=== PATIENT | male | born 1980 | race Native Hawaiian/Other Pacific Islander ===

== ENCOUNTER 2023-09-28 14:25 | Inpatient (IN) | payer OTHER ==
[~2023-09-28] VITALS: Ht 160 cm; Wt 83.2 kg
[2023-09-28 15:09] LABS: HEMATOCRIT 45.2 % (42.0-52.0); HEMOGLOBIN 14.7 g/dl (13.5-18.0); MEAN CELL VOLUME 92 fl (80.0-100.0); MEAN CORPUSCULAR HEMOGLOBIN 30 pg (27-31); MEAN CORPUSCULAR HGB CONC 33 g/dl (33.0-37.0); MEAN PLATELET VOLUME 9.6 fl (7.4-10.4); PLATELET COUNT 361 K/mm3 (130-400); REDCELL DISTRIBUTION WIDTH-CV 12.3 % (11.5-14.5)
[2023-09-28] MEDS ORDERED: Ondansetron 4 MG/2 ML VIAL IV ONE (15:15)
[2023-09-28] MEDS ORDERED: LR 1,000 ML IV ONE (15:15)
[2023-09-28 15:26] LABS: ALBUMIN 2.7 g/dL (3.5-5.0); BILIRUBIN,TOTAL 1.3 mg/dL (0.2-1.2); C-REACTIVE PROTEIN 6.43 mg/dL (0.00-0.50); CALCIUM 9.4 mg/dL (8.4-10.2); POTASSIUM 3.9 mEq/L (3.5-4.5)
[2023-09-28] MEDS ORDERED: Morphine 4 MG/ML VIAL IV ONE (15:30)
[2023-09-28 15:57] LABS: LYMPHOCYTE 12 % (20.0-51.0); NEUTROPHILS 78 % (42.0-75.2)
[2023-09-28] MEDS ORDERED: LR 1,000 ML IV SCH (16:45)
[2023-09-28] MEDS ORDERED: Morphine 4 MG/ML VIAL IV PRN (16:45)
[2023-09-28] MEDS ORDERED: Ondansetron 4 MG/2 ML VIAL IV PRN (16:45)
[2023-09-28] MEDS ORDERED: Polyethylene Glycol 3350 17 GM PDS PO PRN (16:45)
[2023-09-28] MEDS ORDERED: Acetaminophen 325 MG TAB PO PRN (16:45)
[2023-09-28] MEDS ORDERED: Glucagon 1 MG VIAL IM PRN (17:00)
[2023-09-28] MEDS ORDERED: Dextrose 50% Water 25 GM/50 ML SYRINGE IV PRN (17:00)
[2023-09-28] MEDS ORDERED: Dextrose (Glucose) 15 GM (4 x 3.75 GM) Chewable TABLET PACK PO PRN (17:00)
[2023-09-28] MEDS ORDERED: Insulin Lispro (HumaLOG) SQ SCH (17:00)
[2023-09-28 17:52] VITALS: BP 113/78; PULSE 79; TEMP 98.2
[2023-09-28 18:22] VITALS: BP_SYST 113
--- NOTE | 2023-09-28 18:29 | NUR ---
1715 - Pt arrived to surgical unit in wheelchair transport via ED staff. Pt independently transferred self to bed. Pt intake and assessment performed at this time. R AC 20 g IV flushes with blood return. Blood cultures obtained at this time. IV abx administered post blood culture. Pt complaining of abd pain at this time. PRN IV morphine given for pain. Pt does not have any other concerns at this time.
[2023-09-28 20:00] VITALS: BP_SYST 115
[2023-09-28 20:34] VITALS: BP 115/74; PULSE 97; TEMP 99
[2023-09-29] VITALS (41 sets, daily range): BP systolic 91–125; BP diastolic 52–85; PULSE 60–92; TEMP 98.1–103
--- NOTE | 2023-09-29 01:23 | NUR ---
pt lying in bed, alert and oriented x4. denies chest pain and shortness of breath. tylenol given for elevated temp and reported pain. IV in RAC is patent, site is CDI with LR running at 125 ml/hr. x3 abd sites open to air, CDI. pt has no further needs, questions, or concerns at this time. ambulates with steady gait, call light within reach. will continue to monitor.
[2023-09-29 07:11] LABS: HEMATOCRIT 41.4 % (42.0-52.0); HEMOGLOBIN 13.7 g/dl (13.5-18.0); MEAN CELL VOLUME 90 fl (80.0-100.0); MEAN CORPUSCULAR HEMOGLOBIN 30 pg (27-31); MEAN CORPUSCULAR HGB CONC 33 g/dl (33.0-37.0); MEAN PLATELET VOLUME 9.7 fl (7.4-10.4); PLATELET COUNT 321 K/mm3 (130-400); RED BLOOD COUNT 4.61 M/mm3 (4.20-5.60); REDCELL DISTRIBUTION WIDTH-CV 12.3 % (11.5-14.5)
[2023-09-29 07:17] LABS: CALCIUM 8.8 mg/dL (8.4-10.2); CREATININE, serum 0.87 mg/dL (0.72-1.25)
--- NOTE | 2023-09-29 07:22 | NUR ---
0645 - Report received. Pt asleep, laying in bed comfortably. LR running. Pt NPO since midnight, scheduled for drain placement on this date. Independent in room. Call light within reach.
[2023-09-29 08:28] LABS: BAND 1 % (0-10); LYMPHOCYTE 13 % (20.0-51.0); NEUTROPHILS 78 % (42.0-75.2)
[2023-09-29 08:29] LABS: PLATELET ESTIMATE NORMAL (NORMAL)
[2023-09-29] MEDS ORDERED: Pantoprazole 40 MG in NS 10 ML IV SCH (09:00)
[2023-09-29] MEDS ORDERED: AMOXICILLIN/CLA1 TA1 PO (09:28)
[2023-09-29] MEDS ORDERED: JANUVIA25 MG PO (09:28)
[2023-09-29] MEDS ORDERED: COLACE 100100 MG/CAP PO (09:29)
[2023-09-29] MEDS ORDERED: NORCO 325 MG-51 TAB PO (09:30)
[2023-09-29] MEDS ORDERED: TYLENOL 325MG325 MG PO (09:31)
--- NOTE | 2023-09-29 10:20 | NUR ---
1015 - Consent for abscess drain obtained. No questions at this time. Report given to CT.
--- NOTE | 2023-09-29 10:40 | NUR ---
0913 - Pt awake, laying down in bed for morning assessment and med pass. Pt remains NPO since midnight. 20 g IV R AC patent, LR running at 125 ml/hr. Pt experiencing pain 06/13, stating this is tolerable, denying pain medication at this time. Pt states he is ready for his procedure, hoping to go home following procedure. No other concerns at this time. Pt independent in room. Call light within reach.
--- NOTE | 2023-09-29 10:53 | NUR ---
ISAEL met with patient to complete initial assessment for discharge planning. 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 He lives with his Duyen Guevara ([phone]). Patient uses [facility] for his medical care and pharmacy needs. Patient denies having a DPOA completed but did agree to doing one at this time. ISAEL and KANNAN Kunz witnessed signature on DPOA document naming Duyen as patient's DPOA. Patient plans to return home at discharge. Discharge plan: Home
--- NOTE | 2023-09-29 11:01 | NUR ---
1055 - Pt picked up by IR, taken to procedure.
[2023-09-29] MEDS ORDERED: fentaNYL 50 MCG/ML 2 ML VIAL IV SCH ×2 (11:37→14:55)
[2023-09-29] MEDS ORDERED: Midazolam 2 MG/2 ML VIAL IV SCH ×2 (11:37→14:55)
--- NOTE | 2023-09-29 12:45 | NUR ---
SPECIMEN COLLECTED AT 1127. 50ML OF RODRIGUEZ FLUID.
--- NOTE | 2023-09-29 12:47 | NUR ---
PAIN 10/10 DURING PROCEDURE--DR. HASSAN AWARE AND GAVE BVERBAL ORDERS--SEE MAR.
--- NOTE | 2023-09-29 14:45 | NUR ---
Pt to ct per bed. Pt on ct table in supine position. Monitors applied.
--- NOTE | 2023-09-29 14:55 | NUR ---
Dr Troncoso into room for replacement of drain that was previously placed. Pt having a lot of pain.
--- NOTE | 2023-09-29 15:15 | NUR ---
Drain placed by Dr Troncoso and draining purulent into accordian drain.
--- NOTE | 2023-09-29 15:30 | NUR ---
1220 - Pt arrived back to unit from drain placement. Pt pain 10/10, after receiving versed and fentanyl during procedure. Pt BP 91/52, waiting on BP to rise before giving PRN morphine. Pt understanding and willing to wait. IV abx administered at this time. Surgical site assessed, dressing clean, dry, intact. No drainage noted in drain, negative pressure accordian noted to be fully decompressed. Accordian compressed at this time. 1300 - IV abx finished running. Fluids re-initiated at this time. Pt pain still 10/10. Pt shaking, moaning, grimacing, and guarding at this time. Pt also stated that he was feeling very cold. Temp checked at this time, 98.1F. BP rechecked, 123/70. PRN morphine administered at this time. Accordian noted to be partially decompressed again. Accordian compressed again. 1330 - Pain reassessment following PRN administration of morpine showed no relief of pain, still 10/10 pain. Pt still showing physical symptoms of pain at this time, grimacing, shaking, chills, moaning, guarding. Accordian drain partially decompressed again at this time. Accordian compressed again. Dr Gaspar notified of unrelief of pain. Repeat CT scan ordered. Pt taken back to CT for scan. Pt placed back on NPO status. 1430 - Pt taken back to IR for redo drain placement. 1530 - Pt arrived back to unit following drain re-placement. Pt states he is now at 0/10 pain, "feeling much better." Pt is placed back on Carb Count diet, eating lunch up in chair. Fluids initiated again at this time, LR running at 125 ml/hr. Pt dressing clean, dry, intact with scant sanguinous drainage in drainage container. Pt independent in room. Call light within reach.
[2023-09-29] MEDS ORDERED: oxyCODONE 5 MG TAB PO PRN (20:30)
[2023-09-29] MEDS ORDERED: Acetaminophen 325 MG TAB PO ONE (20:30)
--- NOTE | 2023-09-29 20:30 | NUR ---
DR. SOLORIO NOTIFIED OF PTS FEVER OF 103 ORALLY. NEW ORDERS FOR ONE TIME DOSE OF TYLENOL, VANCO STARTED WELL OXYCODONE FOR PAIN. OTHER VITAL SIGNS STABLE. WILL MONITOR.
[2023-09-29] MEDS ORDERED: Vancomycin 1.75 GM,Special Dose/Pharmacy Prepared 1.75 GM in NS 500 ML IV ONE (20:45)
--- NOTE | 2023-09-29 21:32 | NUR ---
Vancomycin Initial Dosing Pharmacy Note Ordering provider: Vero Gaspar MD Indication/duration: SEPSIS / ABDOMINAL ABSCESS Relevant comorbidities: APPENDECTOMY 09/21/23 - PRESCRIBED AUGMENTIN 09/22/23 LABS: WBC: 19.2 CRCL 94 ML/MIN 83.2 KG Recommendation: [address] SOLORIO Loading dose: 1.75 grams Maintenance dose: 1.5 grams every 12 hours Trough goal: 15-20 ug/mL
[2023-09-30] VITALS (14 sets, daily range): BP systolic 99–136; BP diastolic 70–79; PULSE 74–95; TEMP 97.9–102.9
[2023-09-30] MEDS ORDERED: Ibuprofen 200 MG TAB PO ONE (02:15)
--- NOTE | 2023-09-30 02:15 | NUR ---
THE PATIENT IS STILL RUNNING HIGH FEVERS 102.[address] SOLORIO NOTIFIED AND A NEW ORDER WAS RECEIVED TO GIVE 200 MG OF PO IBUPROFEN NOW AND IF THE PTS TEMP DOES NOT COME DOWN WITHIN 2 HOURS IT IS OKAY TO GIVE ANOTHER 200 MG OF IBUPROFEN IF NEEDED. WILL MONITOR.
[2023-09-30 06:47] LABS: BASO # 0.1 K/mm3 (0.0-0.2); BASO % 0.3 % (0.0-2.0); GRAN # 19.7 K/mm3 (1.4-6.5); GRAN % 86.6 % (42.2-75.2); HEMATOCRIT 41.9 % (42.0-52.0); HEMOGLOBIN 13.8 g/dl (13.5-18.0); LYMPH # 1.4 K/mm3 (1.2-3.4); LYMPH % 6.2 % (20.0-51.0); MEAN CELL VOLUME 91 fl (80.0-100.0); MEAN CORPUSCULAR HEMOGLOBIN 30 pg (27-31); MEAN CORPUSCULAR HGB CONC 33 g/dl (33.0-37.0); MEAN PLATELET VOLUME 9.6 fl (7.4-10.4); MONO # 1.4 K/mm3 (0.1-0.6); MONO % 6.2 % (1.7-9.3); PLATELET COUNT 254 K/mm3 (130-400); RED BLOOD COUNT 4.62 M/mm3 (4.20-5.60); REDCELL DISTRIBUTION WIDTH-CV 12.1 % (11.5-14.5)
[2023-09-30 07:13] LABS: ALBUMIN 2.3 g/dL (3.5-5.0); BILIRUBIN,TOTAL 3.3 mg/dL (0.2-1.2); CALCIUM 8.8 mg/dL (8.4-10.2); CREATININE, serum 0.8 mg/dL (0.72-1.25); POTASSIUM 3.6 mEq/L (3.5-4.5); TOTAL PROTEIN 7.2 g/dl (6.2-8.1)
--- NOTE | 2023-09-30 07:20 | NUR ---
Pt laying in bed. Pt stating he wants to go home. Educated Pt on need for IV Abx due to infection. Pt insistent that he can do oral Abx at home. Attempted to explain difference between IV and PO Abx. Educated Pt on WBC counts and fever. Pt insistent on talking with provider. Compressed Accordian drain. No further needs. Call light in reach.
--- NOTE | 2023-09-30 07:46 | NUR ---
Attempted to call Dr Ioana Gaspar with Critical Lab result. Call was left to voicemail.
[2023-09-30] MEDS ORDERED: Vancomycin 1.5 GM,Special Dose/Pharmacy Prepared 1.5 GM in NS 250 ML IV SCH (09:00)
--- NOTE | 2023-09-30 09:30 | NUR ---
Pt laying in bed. A&Ox4. VSS. Temp trending down from last night. S1S2 Clear lungs on RA. ABd is round, firm, tender on palpation. Pt guards and tenses when anything touches ABD. Palpable pulses in all extremities with 5/5 strength. IV in R AC has LR at 125 cc/hr. Accordian drain in RLQ has gauze dressing, CDI, compressed with small amount of brown-red drainage in bag. Pt states he does not want anything for pain at this time as it only hurts when someone touches the drain site. Pt denies n/v, fever/chills, headache. No further needs. Call light in reach.
[2023-09-30] MEDS ORDERED: Ibuprofen 400 MG TAB PO PRN (12:00)
--- NOTE | 2023-09-30 12:02 | NUR ---
PCT reported Pt's temp was starting to go back up: 99.9. Called provider for Motrin PO order. Administered med and will monitor temp this PM. Pt reported he has not had a BM since 09/26 and feels like he has to go but cannot. Appetite has been good and feels full.
--- NOTE | 2023-09-30 13:04 | NUR ---
PCT notified this RN, Pt's temperature came back down after Motrin to 98.7.
[2023-10-01] VITALS (11 sets, daily range): BP systolic 101–136; BP diastolic 67–72; PULSE 69–92; TEMP 97.9–100
[2023-10-01 06:41] LABS: BASO % 0.2 % (0.0-2.0); EOS # 0.1 K/mm3 (0.0-0.7); EOS % 0.4 % (0.0-4.0); GRAN # 15.9 K/mm3 (1.4-6.5); GRAN % 83.3 % (42.2-75.2); HEMOGLOBIN 12.3 g/dl (13.5-18.0); LYMPH # 1.8 K/mm3 (1.2-3.4); LYMPH % 9.4 % (20.0-51.0); MEAN CELL VOLUME 88 fl (80.0-100.0); MEAN CORPUSCULAR HEMOGLOBIN 30 pg (27-31); MEAN CORPUSCULAR HGB CONC 34 g/dl (33.0-37.0); MEAN PLATELET VOLUME 9.7 fl (7.4-10.4); MONO # 1.2 K/mm3 (0.1-0.6); PLATELET COUNT 298 K/mm3 (130-400); RED BLOOD COUNT 4.13 M/mm3 (4.20-5.60); REDCELL DISTRIBUTION WIDTH-CV 12.2 % (11.5-14.5)
[2023-10-01 06:49] LABS: HEMATOCRIT 36.4 % (42.0-52.0)
[2023-10-01 07:08] LABS: CALCIUM 8.7 mg/dL (8.4-10.2); CREATININE, serum 0.75 mg/dL (0.72-1.25); POTASSIUM 3.5 mEq/L (3.5-4.5)
--- NOTE | 2023-10-01 08:00 | NUR ---
SHIFT ASSESSMENT COMPLETE. VSS. PATIENT UP WALKING AROUND ROOM. ALL MORNING MEDS GIVEN ORDERED. PATIENT STATES NO PAIN THIS AM BUT DOES FEEL HEAVEY OR MAYBE BLOATED. THIS NURSE STOPPED IV FLUIDS AT THIS TIME, WILL CONTACT HOSPITALIST ABOUT DC FLUIDS. PATIENT HAS NO OTHER NEEDS AT THIS TIME. DRAIN IS IN PLACE AND MINIMAL AMOUNT OF RODRIGUEZ DRAINAGE PRESENT. CALL LIGHT IN REACH
--- NOTE | 2023-10-01 19:50 | NUR ---
In patient report. Patient voiced frustation with having to wait 2 hours for tylenol after calling. Provided patient with tylenol. Patient requesting new nurse for this shift. Informed patient staff with try to make those adjustments to accommadate.
--- NOTE | 2023-10-01 20:00 | NUR ---
Received report from RACHEL Guaman.
--- NOTE | 2023-10-01 21:47 | NUR ---
Patient assessed at this time, see shift assessment, denies pain or discomfort, with INT infusing well on right forearm, with accordion drain to compression on his right side of his abdomen with no output, denies further needs, call light and personal items within reach, will continue to monitor.
[2023-10-02] VITALS (14 sets, daily range): BP systolic 101–118; BP diastolic 64–75; PULSE 66–91; TEMP 98.4–102.9
[2023-10-02 06:29] LABS: BILIRUBIN,DIRECT 1.5 mg/dL (0.0-0.5); CALCIUM 8.9 mg/dL (8.4-10.2); CREATININE, serum 0.77 mg/dL (0.72-1.25); POTASSIUM 3.3 mEq/L (3.5-4.5)
[2023-10-02] MEDS ORDERED: *Potassium Replacement Protocol MC SCH (08:00)
[2023-10-02] MEDS ORDERED: Potassium Bicarbonate/Citrate 20 MEQ Effervescent TAB PO SCH ×2 (08:00→16:00)
[2023-10-02 09:07] LABS: BASO # 0.1 K/mm3 (0.0-0.2); BASO % 0.3 % (0.0-2.0); EOS # 0.1 K/mm3 (0.0-0.7); EOS % 0.5 % (0.0-4.0); GRAN # 14.8 K/mm3 (1.4-6.5); GRAN % 79.5 % (42.2-75.2); HEMATOCRIT 39.8 % (42.0-52.0); HEMOGLOBIN 13.3 g/dl (13.5-18.0); LYMPH # 2.1 K/mm3 (1.2-3.4); LYMPH % 11.5 % (20.0-51.0); MEAN CELL VOLUME 89 fl (80.0-100.0); MEAN CORPUSCULAR HEMOGLOBIN 30 pg (27-31); MEAN CORPUSCULAR HGB CONC 33 g/dl (33.0-37.0); MONO # 1.4 K/mm3 (0.1-0.6); MONO % 7.4 % (1.7-9.3); RED BLOOD COUNT 4.47 M/mm3 (4.20-5.60); REDCELL DISTRIBUTION WIDTH-CV 12.3 % (11.5-14.5)
--- NOTE | 2023-10-02 09:07 | NUR ---
pt off floor for CT scan
[2023-10-02 09:10] LABS: PLATELET COUNT 417 K/mm3 (130-400)
--- NOTE | 2023-10-02 10:15 | NUR ---
PT ALERT AND RESTING IN BED. MEDS GIVEN PER ORDER. PT REPORTED 8/10 PAIN IN ABDOMEN NEAR DRAIN SITE. MOTRIN PRN GIVEN. 3 LAP SITES DRY AND INTACT. OUTPUT FROM ACCORDIAN DRAIN BROWN. CALL LIGHT WITHIN REACH. NO FURTHER NEEDS.
--- NOTE | 2023-10-02 11:39 | NUR ---
Devulcanizer Loader met with patient to check in and review discharge plan. Patient is hopeful he can return soon and lives on [address].
--- NOTE | 2023-10-02 16:30 | NUR ---
PT REFUSED BLOOD SUGAR CHECK AT THIS TIME PER ESTELA PCT. WILL REASSESS.
--- NOTE | 2023-10-02 19:37 | NUR ---
report received from conrad tan. pt resting in bed with family at bedside. pt reporting 2/10 pain but stating it is increasing. pt requesting PRN with HS meds. call light in reach. all needs met at this time.
--- NOTE | 2023-10-02 20:11 | NUR ---
shift assessment complete, see documentation. pt running temp of 102.5 and rating 5/10 abd pain. pt offered PRN tylenol and oxycodone, pt refused. pt requested motrin. PRN motrin administered per orders. call light in reach. all needs met at this time.
--- NOTE | 2023-10-02 21:38 | NUR ---
pt continues with low grade temp of 100.4 and pt now reporting 3/10 abd pain, requesting tylenol. PRN tylenol administered per orders.
[2023-10-03] VITALS (11 sets, daily range): BP systolic 101–119; BP diastolic 69–79; PULSE 65–85; TEMP 98.4–100.6
[2023-10-03 06:08] LABS: HEMATOCRIT 37.6 % (42.0-52.0); HEMOGLOBIN 12.8 g/dl (13.5-18.0); MEAN CELL VOLUME 87 fl (80.0-100.0); MEAN CORPUSCULAR HEMOGLOBIN 30 pg (27-31); MEAN CORPUSCULAR HGB CONC 34 g/dl (33.0-37.0); MEAN PLATELET VOLUME 9.6 fl (7.4-10.4); PLATELET COUNT 425 K/mm3 (130-400); RED BLOOD COUNT 4.34 M/mm3 (4.20-5.60); REDCELL DISTRIBUTION WIDTH-CV 12.3 % (11.5-14.5)
--- NOTE | 2023-10-03 06:30 | NUR ---
BEDSIDE SHIFT REPORT RECIEVED AT THIS TIME.
[2023-10-03 06:31] LABS: CALCIUM 9.3 mg/dL (8.4-10.2); CREATININE, serum 0.77 mg/dL (0.72-1.25); POTASSIUM 3.6 mEq/L (3.5-4.5)
[2023-10-03 07:01] LABS: BAND 3 % (0-10); LYMPHOCYTE 11 % (20.0-51.0); NEUTROPHILS 75 % (42.0-75.2); PLATELET ESTIMATE INCREASED (NORMAL)
[2023-10-03] MEDS ORDERED: Potassium Bicarbonate/Citrate 20 MEQ Effervescent TAB PO SCH (07:45)
--- NOTE | 2023-10-03 07:49 | NUR ---
SHIFT ASSESSMENT COMPLETED AT THIS TIME. PT A&OX4. INSCIONS C,D,I. PT DENIES PAIN AT THIS TIME BUT ABDOMEN TENDER UPON PALPATION. PT UP AND WALKING IN ROOM UPON ENTRANCE. SCHEDULED MORNING MEDICATIONS ADMINISTERED AT THIS TIME WITHOUT COMPLICATIONS. INT INTACT. PER MD IN ROOM, PT TO BE NPO UNTIL FURTHER INSTRUCTIONS. PT RESTING IN BED. BED IN LOWEST POSITION. CALL LIGHT WITHIN REACH.
--- NOTE | 2023-10-03 15:26 | NUR ---
PT RESTING IN BED WITH EYES CLOSED AT THIS TIME. CALL LIGHT WITHIN REACH.
--- NOTE | 2023-10-03 22:30 | NUR ---
PATIENT IS RESTING IN BED WATCHING TV. STATES MOTRIN COMPLETELY RELIEVED HIS PAIN. DENIES ANY NAUSEA AT THIS TIME. REMAINS STABLE ON ROOM AIR. CALL LIGHT IS WITHIN REACH. BED IS LOCKED AND IN LOW POSITION.
[2023-10-04] VITALS (18 sets, daily range): BP systolic 97–125; BP diastolic 60–78; PULSE 65–90; TEMP 97.6–99.5
[2023-10-04 06:35] LABS: HEMOGLOBIN 12.9 g/dl (13.5-18.0); MEAN CELL VOLUME 88 fl (80.0-100.0); MEAN CORPUSCULAR HEMOGLOBIN 30 pg (27-31); MEAN CORPUSCULAR HGB CONC 34 g/dl (33.0-37.0); MEAN PLATELET VOLUME 9.7 fl (7.4-10.4); PLATELET COUNT 493 K/mm3 (130-400); RED BLOOD COUNT 4.33 M/mm3 (4.20-5.60); REDCELL DISTRIBUTION WIDTH-CV 12.5 % (11.5-14.5)
[2023-10-04 06:50] LABS: CALCIUM 9.4 mg/dL (8.4-10.2); CREATININE, serum 0.76 mg/dL (0.72-1.25); POTASSIUM 3.7 mEq/L (3.5-4.5)
[2023-10-04 07:12] LABS: BAND 2 % (0-10); BASOPHIL 1 % (0-2); EOSINOPHIL 1 % (0-4); NEUTROPHILS 81 % (42.0-75.2); PLATELET ESTIMATE INCREASED (NORMAL)
[2023-10-04 07:13] LABS: LYMPHOCYTE 9 % (20.0-51.0)
--- NOTE | 2023-10-04 09:30 | NUR ---
SHIFT ASSESSMENT COMPLETE. VSS. PATIENT UP WALKING HALLS AND AROUND ROOM. ALL MORNING MEDS GIVEN PER ORDERS. PATIENT STATES PAIN 4/10 PAIN MEDS GIVEN ORDERED. PATIET HAS NO OTHER NEEDS AT THIS TIME. PATIENT SCHEDULED TO GO TO OR AT AROUND 1530, SURGERY CONSENT SIGNED.
[2023-10-04] MEDS ORDERED: dexAMETHasone 10 MG/ML VIAL ONE (14:21)
[2023-10-04] MEDS ORDERED: Midazolam 2 MG/2 ML VIAL ONE (14:21)
[2023-10-04] MEDS ORDERED: fentaNYL 50 MCG/ML 2 ML VIAL ONE ×2 (14:21→16:58)
[2023-10-04] MEDS ORDERED: Ondansetron 4 MG/2 ML VIAL ONE (14:21)
[2023-10-04] MEDS ORDERED: Rocuronium 50 MG/5 ML Multi-Dose VIAL ONE (14:21)
[2023-10-04] MEDS ORDERED: Lidocaine PF 2% (20 MG/ML) 5 ML VIAL ONE (14:21)
[2023-10-04] MEDS ORDERED: Succinylcholine PF 200 MG/10 ML SYRINGE IV ONE (14:21)
[2023-10-04] MEDS ORDERED: Labetalol 100 MG/20 ML Multi-Dose VIAL ONE (16:38)
[2023-10-04] MEDS ORDERED: Ondansetron 4 MG/2 ML VIAL IV PRN (17:30)
[2023-10-04] MEDS ORDERED: HYDROmorphone 1 MG/1 ML SYRINGE [PACU/SDC ONLY] IV PRN (17:30)
[2023-10-04] MEDS ORDERED: fentaNYL 50 MCG/ML 1 ML SYRINGE/VIAL [PACU/SDC ONLY] IV PRN (17:30)
[2023-10-04] MEDS ORDERED: hydrALAZINE 20 MG/ML 1 ML VIAL IV PRN (17:30)
[2023-10-04] MEDS ORDERED: droPERidol 2.5 MG/ML 2 ML VIAL IV PRN (17:30)
--- NOTE | 2023-10-04 18:20 | NUR ---
PATIENT ARRIVED TO FLOOR FROM PACU. 2 LAP SITES CDI W/ BANDAIDS. ONE BUCKY DRAIN INTACT DRAINING. PATIENT STATES PAIN 2/10 AT THIS TIME, NO NEEDS AT THIS TIME. AT BEDSIDE.
--- NOTE | 2023-10-04 19:10 | NUR ---
Assessment complete. A&Ox3. Denies shortness of breath. Rating pain 7/10 on pain scale-described as sharp burning pains in abdomen. Also c/o nausea. Zofran given first followed by oxycodone per dr order. Currently on post of vitals-WNL. Did tolerate a little bit of diet-family also brought something from home. Left AC INT flushes without difficulty. Lap sites x 3-CDI. BUCKY drain with a scant amount of reddish drainage noted. Plan of care discussed for this shift to include meds/pain control/VS/calling for questions/concerns. Verbalizes understanding. Call light in reach. Will monitor.
[2023-10-05] VITALS (11 sets, daily range): BP systolic 90–112; BP diastolic 54–69; PULSE 67–77; TEMP 98.1–98.8
--- NOTE | 2023-10-05 05:16 | NUR ---
Patient had an uneventful night. VS stable. Tolerating PO. Received one dose of oxycodone with good pain control. INT to left AC flushes without difficulty. Denies current needs. Call light in reach. Will monitor.
[2023-10-05 05:52] LABS: HEMATOCRIT 39.4 % (42.0-52.0); HEMOGLOBIN 13.2 g/dl (13.5-18.0); MEAN CELL VOLUME 88 fl (80.0-100.0); MEAN CORPUSCULAR HEMOGLOBIN 30 pg (27-31); MEAN CORPUSCULAR HGB CONC 34 g/dl (33.0-37.0); MEAN PLATELET VOLUME 9.7 fl (7.4-10.4); PLATELET COUNT 592 K/mm3 (130-400); RED BLOOD COUNT 4.48 M/mm3 (4.20-5.60); REDCELL DISTRIBUTION WIDTH-CV 12.7 % (11.5-14.5)
[2023-10-05 06:02] LABS: CALCIUM 9.8 mg/dL (8.4-10.2); CREATININE, serum 0.85 mg/dL (0.72-1.25); POTASSIUM 4.4 mEq/L (3.5-4.5)
[2023-10-05 07:24] LABS: NEUTROPHILS 91 % (42.0-75.2)
[2023-10-05 07:25] LABS: LYMPHOCYTE 7 % (20.0-51.0); PLATELET ESTIMATE INCREASED (NORMAL)
--- NOTE | 2023-10-05 07:29 | NUR ---
0700 - Pt awake, sitting up in bed during shift report. Pt does not complain of pain. No other concerns at this time. Pt independent in room. Call light within reach.
--- NOTE | 2023-10-05 10:00 | NUR ---
0919 - Pt awake, laying down in bed for morning assessment and med pass. Pt states that his pain is "controlled" at this time. No concerns at this time. Pt independent in room. Call light within reach.
[2023-10-05] MEDS ORDERED: Insulin Lispro (HumaLOG) SQ SCH (12:00)
--- NOTE | 2023-10-05 12:19 | NUR ---
Pt blood sugar 150 for lunch reading. Pt states that he will not be eating lunch. This nurse called Dr Lockhart to verify order for insulin. Dr Lockhart stated to give 3 units of insulin rather than the ordered 6 units per sliding scale. 3 units given at this time.
--- NOTE | 2023-10-05 12:20 | NUR ---
Pt was put on clear liquid diet this AM. This nurse called to verify order. Dr Alexandra stated pt could be placed back on ADA diet at this time. Order reflected in chart.
--- NOTE | 2023-10-05 17:47 | NUR ---
Pt refused blood sugar check for dinner check. Pt states, "I don't know why you have to check my blood sugar when I haven't eaten, and I'm not eating." Pt also states, "I'm tired of being poked and prodded." Pt educated on diabetes and use of blood sugar checks and insulin to treat it.
--- NOTE | 2023-10-05 20:45 | NUR ---
Patient called with c/o pain to incision sites on abdomen-rating pain 3/10 on pain scale described as constant ache. Tylenol/motrin given per dr order. Will monitor.
--- NOTE | 2023-10-06 | NUR ---
Patient refused 0000 vitals. States he is tired and has not had any sleep and does not want to be bothered. States "I talked to the female doctor today and she said I didnt have to have any vitals done over night." No orders for this and not mentioned in progress notes. Patient is adamant that he does not want to be bothered and to come back in the morning.
[2023-10-06 05:36] VITALS: BP 94/57; PULSE 60; TEMP 98.5
[2023-10-06 06:10] LABS: HEMATOCRIT 37.4 % (42.0-52.0); HEMOGLOBIN 12.5 g/dl (13.5-18.0); MEAN CELL VOLUME 89 fl (80.0-100.0); MEAN CORPUSCULAR HEMOGLOBIN 30 pg (27-31); MEAN CORPUSCULAR HGB CONC 33 g/dl (33.0-37.0); MEAN PLATELET VOLUME 9.4 fl (7.4-10.4); PLATELET COUNT 525 K/mm3 (130-400); REDCELL DISTRIBUTION WIDTH-CV 12.9 % (11.5-14.5)
[2023-10-06 06:22] LABS: CALCIUM 9.4 mg/dL (8.4-10.2); CREATININE, serum 0.9 mg/dL (0.72-1.25); POTASSIUM 4.4 mEq/L (3.5-4.5)
[2023-10-06 06:26] VITALS: BP_SYST 94
--- NOTE | 2023-10-06 06:27 | NUR ---
Patient rested from [id number]. Refused 0000 vitals but did take HS insulin. INT to left AC flushes without difficulty. VS remained stable. Received tylenol/motrin for pain with adequate control. Denied nausea. Is hoping to go home today. Denies current questions/concerns. Call light in reach. Will monitor.
--- NOTE | 2023-10-06 06:43 | NUR ---
Bedside shift report given to RACHEL Mac
[2023-10-06 06:48] LABS: BAND 2 % (0-10); LYMPHOCYTE 11 % (20.0-51.0); NEUTROPHILS 77 % (42.0-75.2)
[2023-10-06 06:49] LABS: PLATELET ESTIMATE INCREASED (NORMAL)
--- NOTE | 2023-10-06 07:03 | NUR ---
0645 - Pt awake, sitting up in chair. Pt states he "got better sleep" last night, and is thankful for not "being bothered" while he was sleeping. Pt does not complain of pain at this time. No concerns at this time. Pt independent in room. Call light within reach.
[2023-10-06 07:50] VITALS: BP 113/75; PULSE 73; TEMP 98.5
[2023-10-06 09:00] VITALS: BP_SYST 113
--- NOTE | 2023-10-06 10:47 | NUR ---
0927 - Pt awake, sitting up in bed during morning assessment and med pass. Pt does not complain of pain at this time. No concerns. Pt independent. Call light within reach.
--- NOTE | 2023-10-06 10:51 | NUR ---
Dr Alexandra gave pt the option of either following up with the surgeon that performed the appendectomy or with Dr Alexandra. Pt prefers to follow up with Dr Alexandra. Follow up appointment to be made with Dr Alexandra.
[2023-10-06] MEDS ORDERED: CIPRO 500MG TA500 MG PO (11:03)
[2023-10-06] MEDS ORDERED: NORCO 325 MG-51 TAB PO (11:06)
--- NOTE | 2023-10-06 13:00 | NUR ---
1250 - This nurse went over d/c instructions. All questions answered at this time. Pt ambulated out of unit accompanied by family. IV d/c'd prior to discharge. No concerns at this time.
== END 2023-10-06 12:50 | disposition home or self-care (01) | DRG 858 ==
LOC: COL.ER 14:25 → SURG 16:27
PROVIDERS: Family Medicine; Internal Medicine; Physician Assistant; ADMIT Internal Medicine
PROC: 0W9G4ZZ Drainage of Peritoneal Cavity, Percutaneous Endoscopic Approach (ICD-10-PCS; principal; 2023-09-28)
DX: T81.43XA Infection following a procedure, organ and space surgical site, initial encounter (principal); E87.6 Hypokalemia; E11.9 Type 2 diabetes mellitus without complications; Z79.4 Long term (current) use of insulin; R74.01 Elevation of levels of liver transaminase levels; Z79.84 Long term (current) use of oral hypoglycemic drugs
CPT/HCPCS: C1729; C1769; J0690; J0744; J1100; J1815; J1920; J2250; J2270; J2405; J2470; J2543; J2704; J3010; J3370; J7040; J7120